=== PATIENT | female | born 1950 | race Caucasian/White ===

== ENCOUNTER 2020-08-16 17:31 | Emergency (ER) | payer MEDICARE ==
[~2020-08-16 17:31] MED LIST: ARICEPT10 MG PO; ASPIRIN81 MG PO; LEXAPRO10 MG PO; LIPITOR20 MG PO; LISINOPRIL10 MG PO; METOPROLOL TART25 MG PO; NORVASC10 MG PO; PERCOCET 5/325 T1 EA PO; PLAVIX75 MG PO
[2020-08-16 19:21] LABS: HEMOGLOBIN 11.6 gm/dl (12.3-15.3); RED BLOOD COUNT 3.82 M/UL (4.00-5.10); WHITE BLOOD COUNT 8.8 K/UL (4.5-11.0)
[2020-08-16 19:44] LABS: BUN/CREATININE RATIO 17 (0-10)
== END 2020-08-16 20:34 | disposition home or self-care (01) ==
LOC: ER1 17:31
PROVIDERS: Physician Assistant
DX: R68.83 Chills (without fever) (principal); R51.9 Headache, unspecified; E11.9 Type 2 diabetes mellitus without complications; I10 Essential (primary) hypertension; Z95.1 Presence of aortocoronary bypass graft; Z90.710 Acquired absence of both cervix and uterus; Z20.822 Contact with and (suspected) exposure to COVID-19
CPT/HCPCS: 0240U; 71045; 80053; 82550; 82553; 83874; 83880; 84484; 85025; 85610; 85730; 93005; 99284

== ENCOUNTER 2021-01-05 20:16 | Inpatient (IN) | payer MEDICARE ==
[~2021-01-05] VITALS: Ht 172.7 cm; Wt 81.6 kg
[~2021-01-05 20:16] MED LIST changes: -ARICEPT10 MG PO; +ARICEPT23 MG PO; -NORVASC10 MG PO; +NORVASC5 MG PO
[2021-01-05 20:48] LABS: RED BLOOD COUNT 3.71 M/UL (4.00-5.10); WHITE BLOOD COUNT 5.6 K/UL (4.5-11.0)
[2021-01-05 21:20] LABS: BUN/CREATININE RATIO 9 (0-10)
[2021-01-06] MEDS ORDERED: MIRTAZAPINE30 MG PO (09:24)
[2021-01-06] MEDS ORDERED: PROZAC10 MG PO (09:24)
[2021-01-06] MEDS ORDERED: MEGACE TAB 40 M40 MG PO (09:25)
[2021-01-06] MEDS ORDERED: DAILY VITE1 EACH PO (11:00)
[2021-01-06] MEDS ORDERED: COUGH SYRU100 MG/5 M PO (11:03)
[2021-01-09 04:46] LABS: BUN/CREATININE RATIO 31 (0-10)
[2021-01-10 04:00] LABS: HEMOGLOBIN 10.8 gm/dl (12.3-15.3); RED BLOOD COUNT 3.75 M/UL (4.00-5.10)
[2021-01-10 04:20] LABS: BUN/CREATININE RATIO 30 (0-10)
[2021-01-11 04:31] LABS: BUN/CREATININE RATIO 26 (0-10)
--- NOTE | 2021-01-11 20:00 | NUR ---
REPORT RECEIVED, PT MAINTAINING 86-88% ON 100% BIPAP, RESPIRATIONS 44/MIN. DR JASSO NOTIFIED, INSTRUCTED TO GET PATIENT READY FOR INTUBATION AND NOTIFY DR TAMAYO FOR ORDERS TO SEND PT TO ICU. PT TRANSFERRED TO ICU FOR INTUBATION
[2021-01-12 02:54] LABS: HEMOGLOBIN 11.2 gm/dl (12.3-15.3); RED BLOOD COUNT 3.83 M/UL (4.00-5.10)
[2021-01-12 02:56] LABS: WHITE BLOOD COUNT 8.9 K/UL (4.5-11.0)
--- NOTE | 2021-01-12 11:31 | NUR ---
MICHAELLE IN RT NOTITIFED OF ORDER FOR HI FLOW NC
--- NOTE | 2021-01-12 15:44 | NUR ---
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
[2021-01-14 06:55] LABS: HEMOGLOBIN 12.1 gm/dl (12.3-15.3); RED BLOOD COUNT 4.14 M/UL (4.00-5.10)
[2021-01-14 06:57] LABS: WHITE BLOOD COUNT 11.6 K/UL (4.5-11.0)
[2021-01-15 02:10] LABS: HEMOGLOBIN 11.6 gm/dl (12.3-15.3); RED BLOOD COUNT 4.02 M/UL (4.00-5.10); WHITE BLOOD COUNT 10.5 K/UL (4.5-11.0)
--- NOTE | 2021-01-17 01:11 | NUR ---
PATIENT ACCIDENTALLY PULLED IV OUT WHILE REPOSITONING SELF IN BED. I ASSESSED THE INSERTION SITE AND APPLIED A GUAZE 2X2, TAPE AND PRESSURE. PATIENT TOLERATED WELL
[2021-01-17 07:04] LABS: HEMOGLOBIN 10.9 gm/dl (12.3-15.3); RED BLOOD COUNT 3.76 M/UL (4.00-5.10)
[2021-01-17 07:06] LABS: WHITE BLOOD COUNT 14.6 K/UL (4.5-11.0)
[2021-01-17] MEDS ORDERED: DEXAMETHASONE1 MG PO (15:23)
[2021-01-17] MEDS ORDERED: PROTONIX 40 MG40 M1 PO (15:23)
[2021-01-17] MEDS ORDERED: ASPIRIN EC81 MG PO (15:23)
[2021-01-17] MEDS ORDERED: LIPITOR20 MG PO (15:23)
[2021-01-17] MEDS ORDERED: IPRAT-ALBUT 0.5-3 ML NEB (15:23)
[2021-01-17] MEDS ORDERED: ELIQUIS 5 MG TAB5 MG PO (15:28)
[2021-01-17] MEDS ORDERED: PULMICORT0.5 MG/2 M INH (15:32)
[2021-01-17] MEDS ORDERED: NEBULIZER UNIT INH (15:36)
== END 2021-01-17 18:15 | disposition home health service (06) | DRG 177 ==
LOC: ER1 20:16 → MED SURG 4 22:55 → PROG CARE 22:55 → CDU 22:55 → PROG CARE 01-06 15:40 → MED SURG 4 01-15 20:30
PROVIDERS: Internal Medicine; Internal Medicine Pulmonary Disease; Student in an Organized Health Care Education/Training Program; ADMIT Internal Medicine
PROC: 8E0ZXY6 Isolation (ICD-10-PCS; principal; 2021-01-05)
PROC: 3E0333Z Introduction of Anti-inflammatory into Peripheral Vein, Percutaneous Approach (ICD-10-PCS; 2021-01-05)
PROC: 5A09457 Assistance with Respiratory Ventilation, 24-96 Consecutive Hours, Continuous Positive Airway Pressure (ICD-10-PCS; 2021-01-05)
PROC: XW033E5 Introduction of Remdesivir Anti-infective into Peripheral Vein, Percutaneous Approach, New Technology Group 5 (ICD-10-PCS; 2021-01-06)
DX: U07.1 COVID-19 (principal); J96.01 Acute respiratory failure with hypoxia; J12.82 Pneumonia due to coronavirus disease 2019; G93.41 Metabolic encephalopathy; J44.0 Chronic obstructive pulmonary disease with (acute) lower respiratory infection; J44.1 Chronic obstructive pulmonary disease with (acute) exacerbation; I25.10 Atherosclerotic heart disease of native coronary artery without angina pectoris; F32.9 Major depressive disorder, single episode, unspecified; E66.3 Overweight; E87.6 Hypokalemia; F03.90 Unspecified dementia, unspecified severity, without behavioral disturbance, psychotic disturbance, mood disturbance, and anxiety; I11.9 Hypertensive heart disease without heart failure; E11.9 Type 2 diabetes mellitus without complications; E78.5 Hyperlipidemia, unspecified; Z90.49 Acquired absence of other specified parts of digestive tract; Z95.1 Presence of aortocoronary bypass graft; Z82.49 Family history of ischemic heart disease and other diseases of the circulatory system; Z79.899 Other long term (current) drug therapy; Z79.4 Long term (current) use of insulin; Z88.8 Allergy status to other drugs, medicaments and biological substances; Z79.82 Long term (current) use of aspirin
CPT/HCPCS: 36415; 36600; 71045; 80048; 80053; 80202; 82550; 82553; 82728; 82803; 82962; 83615; 83874; 83880; 84132; 84484; 85025; 85027; 85379; 86140; 94640; 94660; 94760; 96374; 97161; 97167; 97530; 97530-GP-CQ; 99285; C9113; J1100; J1650; J2060; J2185; J3370; J3480; J7030; J7070; U0002

== ENCOUNTER → 2021-02-08 | Outpatient (CLI) | payer MEDICARE ==
[~2021-02-08] MED LIST changes: +ASPIRIN EC81 MG PO; +COUGH SYRU100 MG/5 M PO; +DAILY VITE1 EACH PO; +DEXAMETHASONE1 MG PO; +ELIQUIS 5 MG TAB5 MG PO; +IPRAT-ALBUT 0.5-3 ML NEB; +MEGACE TAB 40 M40 MG PO; +MIRTAZAPINE30 MG PO; +NEBULIZER UNIT INH; +PROTONIX 40 MG40 M1 PO; +PROZAC10 MG PO; +PULMICORT0.5 MG/2 M INH
== END ==
LOC: HEART 5 11:05
DX: J96.90 Respiratory failure, unspecified, unspecified whether with hypoxia or hypercapnia (principal)
CPT/HCPCS: 94060; 94729

== ENCOUNTER → 2021-02-09 | Outpatient (CLI) | payer MEDICARE | LOC: EXRD 10:05 | DX: Z86.16 Personal history of COVID-19 (principal); R91.8 Other nonspecific abnormal finding of lung field | CPT/HCPCS: 71046 ==